=== PATIENT | male | born 1970 | race Caucasian/White ===

== ENCOUNTER 2024-03-29 08:05 | Outpatient (CLI) | payer OTHER, SELFPAY ==
--- NOTE | ~2024-03-29 | XR_ITS ---
EXAMINATION: XR lumbar spine 6V w bending DATE: 03/29/2024 08:42 INDICATION: Low back pain, unspecified. TECHNIQUE: 7 views of lumbar spine including standing views and flexion and extension views were obta ined. COMPARISON: None. FINDINGS: There is 3 degrees dextrocurvature of lumbar spine. There is mild chronic anterior wedging of L2 vertebral body. There is mildly decreased disc height at L1-L2 and L2-L3, moderately decreased disc height at L3-L4, mildly decreased disc height at L4-L5, and moderately decreased disc height at L5-S1. The spine is hypomobile with flexion and extension. There is multilevel [id number] facet joint osteoarthritis, worse in lower lumbar spine. IMPRESSION: 1. Moderate lumbar spondylosis. Reviewed, dictated and finalized at location [facility]
== END 2024-03-29 08:06 | disposition home or self-care (01) ==
PROVIDERS: PCP Nurse Practitioner Family
DX: M47.896 Other spondylosis, lumbar region (principal)
CPT/HCPCS: 72114